=== PATIENT | female | born 1975 | race African-American/Black ===

== ENCOUNTER → 2023-05-13 | Day surgery (SDC) | payer OTHER | END | disposition home or self-care (01) | LOC: JRADUS-SUR 08:13 | PROVIDERS: ATTEND Obstetrics & Gynecology | PROC: BU18YZZ Fluoroscopy of Uterus and Fallopian Tubes using Other Contrast (ICD-10-PCS; principal; 2023-05-13) | DX: N97.9 Female infertility, unspecified (principal) | CPT/HCPCS: 58340; 74740-TC-FY; 76000-TC-FY; 84703 ==

== ENCOUNTER 2024-05-10 04:45 | Day surgery (SDC) | payer OTHER ==
[2024-05-03 10:23] VITALS: BMI 44.1
[2024-05-10 08:47] VITALS: TEMP 98.6
[2024-05-10 09:18] VITALS: BP 107/59; PULSE 69; RESP 16
== END 2024-05-10 09:25 | disposition home or self-care (01) ==
LOC: JASU-ENDO 04:45
PROVIDERS: ATTEND Internal Medicine Gastroenterology
PROC: 0DB68ZX Excision of Stomach, Via Natural or Artificial Opening Endoscopic, Diagnostic (ICD-10-PCS; 2024-05-10)
PROC: 0DB78ZX Excision of Stomach, Pylorus, Via Natural or Artificial Opening Endoscopic, Diagnostic (ICD-10-PCS; 2024-05-10)
PROC: 0DJD8ZZ Inspection of Lower Intestinal Tract, Via Natural or Artificial Opening Endoscopic (ICD-10-PCS; principal; 2024-05-10 08:00)
DX: Z12.11 Encounter for screening for malignant neoplasm of colon (principal); K29.50 Unspecified chronic gastritis without bleeding; K64.8 Other hemorrhoids; D50.9 Iron deficiency anemia, unspecified
CPT/HCPCS: 81025; 88305-TC; 88342-TC